=== PATIENT | male | born 2000 | race Two or more races ===

== ENCOUNTER 2023-09-18 03:20 | Emergency (ER) | payer MEDICAID, OTHER, SELFPAY ==
[2023-09-18 03:32] VITALS: BP 111/63; BP 121/80; PULSE 87; PULSE 99; RESP 18; TEMP 37.2; O2SAT 100; O2SAT 99; BMI 21.5
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
== END 2023-09-18 03:56 | disposition home or self-care (01) ==
LOC: HO.ED 03:51
PROVIDERS: Emergency Provider Internal Medicine
DX: Z04.1 Encounter for examination and observation following transport accident (principal)
CPT/HCPCS: 99282; 99284